=== PATIENT | male | born 1945 ===

== ENCOUNTER 2019-04-08 17:10 | Inpatient (IN) | payer MEDICARE ==
[2019-04-08] MEDS ORDERED: Insulin Regular, Human 100 Units/ML 3 ML Vial SUBCUT ONE (17:16)
--- NOTE | 2019-04-08 17:22 | EDM.PDOC ---
<Waqas Carrillo - Last Filed: 04/08/19 18:05> ED HPI GENERAL MEDICAL PROBLEM - General Chief Complaint: Neuro Symptoms/Deficits Stated Complaint: EVAL Time Seen by Provider: 04/08/19 17:17 Source of Information: Reports: EMS History Limitations: Reports: Other (dementia, no old records) - History of Present Illness INITIAL COMMENTS - FREE TEXT/NARRATIVE: 73 yo male was stopped for driving erratically by police who contacted EMS who transported him here. He is alert and pleasantly confused. Has an elevated glucose to the upper 400's per EMS. What information we can obtain confirms a hx of AODM, HTN, and BPH. He knows his name and , but is more sketchy on other details. Thinks he lives in [place]. Does say he has a trailer in [place] and this does check out. Is incontinent when EMS brings him into the ER. Its not clear if he has been taking his meds and if so when. Was able to access [employer] and also talked with a doctor combustion analyst for this patient' s doctor, Dr. Morales, and found out this confusion is not new. Seems pretty clear on some issues, but not on others. Onset: Unknown/Unsure Duration: Chronic Location: Reports: Generalized Quality: Reports: Other (no pain reported.) Severity: Moderate Improves with: Reports: None Worsens with: Reports: Other (? time) Context: Reports: Other (apparently has some baseline chronic confusion. 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 (see below) (none) - Related Data Allergies Allergy/AdvReac Type Severity Reaction Status Date / Time pioglitazone [From Actos] Allergy Other Verified 04/08/19 17:34 Home Meds: Home Meds Glimepiride 4 mg PO WITHBREAKFAST 04/08/19 [History] Lisinopril [Zestril] 10 mg PO DAILY 04/08/19 [History] Tamsulosin [Tamsulosin 24 Hr] 0.4 mg PO BEDTIME 04/08/19 [History] metFORMIN [Glucophage] 1,000 mg PO BIDMEALS 04/08/19 [History] ED ROS GENERAL - Review of Systems Review Of Systems: See Below (due to dementia) Constitutional: Reports: No Symptoms HEENT: Reports: No Symptoms Respiratory: Reports: Cough. Denies: Shortness of Breath, Sputum Cardiovascular: Reports: No Symptoms Endocrine: Reports: No Symptoms GI/Abdominal: Reports: No Symptoms : Reports: No Symptoms Musculoskeletal: Reports: No Symptoms Skin: Reports: No Symptoms Neurological: Reports: No Symptoms Psychiatric: Reports: No Symptoms - Physical Exam Exam: See Below Exam Limited By: No Limitations General Appearance: Alert, WD/WN, No Apparent Distress Eye Exam: Bilateral Eye: Normal Inspection, PERRL Ears: Normal External Exam, Normal Canal, Hearing Grossly Normal Nose: Normal Inspection, No Blood Throat/Mouth: Normal Inspection, Normal Lips, Normal Oropharynx, Normal Voice, No Airway Compromise Head Exam: Atraumatic, Normocephalic Neck: Normal Inspection Respiratory/Chest: No Respiratory Distress, Lungs Clear, Normal Breath Sounds, No Accessory Muscle Use, Other (dry cough) Cardiovascular: Regular Rate, Rhythm, No Edema GI/Abdominal: Normal Bowel Sounds, Soft, Non-Tender, No Distention Neuro Exam (Abbreviated): Alert, CN II-XII Intact, No Motor/Sensory Deficits, Confused (seems clear on some areas, is confused on other issues. ) Back Exam: Normal Inspection. No: CVA Tenderness (R), CVA Tenderness (L) Extremities: Normal Inspection, Normal Range of Motion, Non-Tender, No Pedal Edema Psychiatric: Normal Affect, Normal Mood Skin Exam: Warm, Dry, Intact, Normal Color, No Rash Course - Vital Signs Last Recorded V/S: Last Vital Signs Temp 101.3 F H 04/08/19 19:51 Pulse 103 H 04/08/19 20:20 Resp 18 04/08/19 19:48 BP 141/74 H 04/08/19 20:20 Pulse Ox 98 04/08/19 19:48 - Orders/Labs/Meds Orders: Active Orders 24 hr Category Date Time Status POC Glucose [Blood Glucose Check, Bedside] [RC] ONETIME Care 04/08/19 18:26 Active CULTURE URINE [RM] Stat Lab 04/08/19 18:17 Received Pantoprazole [ProTONIX IV] Med 04/08/19 18:30 Active 40 mg IVPUSH DAILY Sodium Chloride 0.9% [Normal Saline] 1,000 ml Med 04/08/19 18:30 Active IV ASDIRECTED cefTRIAXone [Rocephin] 1 gm Med 04/08/19 18:30 Active Sodium Chloride 0.9% [Normal Saline] 50 ml IV Q24H Medication Orders Acetaminophen (Tylenol) 650 mg PO Q4H PRN PRN Reason: Pain (Mild 1-3)/fever Last Admin: 04/08/19 19:51 Dose: 650 mg Albuterol (Proventil Neb Soln) 2.5 mg NEB Q4H PRN PRN Reason: Shortness Of Breath/wheezing Docusate Sodium (Colace) 100 mg PO BID PRN PRN Reason: Constipation Enoxaparin Sodium (Lovenox) 40 mg SUBCUT DAILY [facility] Last Admin: 04/08/19 20:19 Dose: 40 mg Glimepiride (Amaryl) 4 mg PO WITHBREAKFAST [facility] Ceftriaxone Sodium 1 gm/ (Sodium Chloride) 50 mls @ 100 mls/hr IV Q24H [facility] Last Admin: 04/08/19 19:35 Dose: 100 mls/hr Sodium Chloride (Normal Saline) 1,000 mls @ 150 mls/hr IV ASDIRECTED [facility] Last Admin: 04/08/19 19:52 Dose: 150 mls/hr Insulin Human Lispro (Humalog) 0 unit SUBCUT QIDACANDBED [facility]; Protocol Lisinopril (Prinivil) 10 mg PO DAILY [facility] Lorazepam (Ativan) 1 mg IV Q6H PRN PRN Reason: Nausea/Vomiting Melatonin (Melatonin) 9 mg PO BEDTIME [facility] Metoprolol Tartrate (Lopressor) 25 mg PO BID [facility] Last Admin: 04/08/19 20:20 Dose: 25 mg Morphine Sulfate (Morphine) 2 mg IVPUSH Q2H PRN PRN Reason: Pain (severe 7-10) Ondansetron HCl (Zofran Odt) 4 mg PO Q6H PRN PRN Reason: Nausea able to take PO Ondansetron HCl (Zofran) 4 mg IV Q4H PRN PRN Reason: Nausea/Vomiting Oxycodone HCl (Oxycodone) 5 mg PO Q4H PRN PRN Reason: Pain (moderate 4-6) Pantoprazole Sodium (Protonix Iv) 40 mg IVPUSH DAILY [facility] Last Admin: 04/08/19 19:33 Dose: 40 mg Tamsulosin HCl (Flomax) 0.4 mg PO BEDTIME [facility] Labs: Laboratory Tests 04/08/19 04/08/19 04/08/19 Range/Units 17:23 17:28 17:28 WBC 5.2 (4.5-11.0) K/uL RBC 3.61 L (4.30-5.90) M/uL Hgb 10.4 L (12.0-15.0) g/dL Hct 34.4 L (40.0-54.0) % MCV 95 (80-98) fL MCH 29 (27-31) pg MCHC 30 L (32-36) % Plt Count 158 (150-400) K/uL Sodium 134 L (140-148) mmol/L Potassium 4.4 (3.6-5.2) mmol/L Chloride 99 L (100-108) mmol/L Carbon Dioxide 23 (21-32) mmol/L Anion Gap 16.4 H (5.0-14.0) mmol/L BUN 33 H (7-18) mg/dL Creatinine 1.8 H (0.8-1.3) mg/dL Est Cr Clr Drug Dosing 34.68 mL/min Estimated GFR (MDRD) 37 L (>60) Glucose 386 H (74-106) mg/dL Calcium 8.7 (8.5-10.1) mg/dL Magnesium (1.8-2.4) mg/dL Total Bilirubin (0.2-1.0) mg/dL Direct Bilirubin (0.0-0.2) mg/dL Indirect Bilirubin AST (15-37) U/L ALT (12-78) U/L Alkaline Phosphatase (46-116) U/L Troponin I (0.000-0.056) ng/mL Total Protein (6.4-8.2) g/dL Albumin (3.4-5.0) g/dL Globulin (2.3-3.5) g/dL Albumin/Globulin Ratio (1.2-2.2) Amylase (25-115) U/L Lipase (73-393) U/L TSH, Ultra Sensitive (0.358-3.740) uIU/mL Urine Color Yellow (YELLOW) Urine Appearance Slightly cloudy A (CLEAR) Urine pH 6.0 (5.0-8.0) Ur Specific L[place] 1.015 (1.008-1.030) Urine Protein Trace H (NEGATIVE) mg/dL Urine Glucose (UA) 500 H (NEGATIVE) mg/dL Urine Ketones Negative (NEGATIVE) mg/dL Urine Occult Blood Trace-intact H (NEGATIVE) Urine Nitrite Positive H (NEGATIVE) Urine Bilirubin Negative (NEGATIVE) Urine Urobilinogen 0.2 (0.2-1.0) EU/dL Ur Leukocyte Esterase Negative (NEGATIVE) Urine RBC 10-20 H (0-5) Urine WBC 0-5 (0-5) Ur Epithelial Cells Not seen Amorphous Sediment Rare Urine Bacteria Many Urine Mucus Not seen 04/08/19 04/08/19 Range/Units 18:28 18:29 WBC (4.5-11.0) K/uL RBC (4.30-5.90) M/uL Hgb (12.0-15.0) g/dL Hct (40.0-54.0) % MCV (80-98) fL MCH (27-31) pg MCHC (32-36) % Plt Count (150-400) K/uL Sodium (140-148) mmol/L Potassium (3.6-5.2) mmol/L Chloride (100-108) mmol/L Carbon Dioxide (21-32) mmol/L Anion Gap (5.0-14.0) mmol/L BUN (7-18) mg/dL Creatinine (0.8-1.3) mg/dL Est Cr Clr Drug Dosing mL/min Estimated GFR (MDRD) (>60) Glucose (74-106) mg/dL Calcium (8.5-10.1) mg/dL Magnesium 2.0 (1.8-2.4) mg/dL Total Bilirubin 0.4 (0.2-1.0) mg/dL Direct Bilirubin 0.09 (0.0-0.2) mg/dL Indirect Bilirubin TNP AST 13 L (15-37) U/L ALT 21 (12-78) U/L Alkaline Phosphatase 92 (46-116) U/L Troponin I < 0.017 (0.000-0.056) ng/mL Total Protein 7.3 (6.4-8.2) g/dL Albumin 3.7 (3.4-5.0) g/dL Globulin 3.6 H (2.3-3.5) g/dL Albumin/Globulin Ratio 1.0 L (1.2-2.2) Amylase 42 (25-115) U/L Lipase 314 (73-393) U/L TSH, Ultra Sensitive 1.235 (0.358-3.740) uIU/mL Urine Color (YELLOW) Urine Appearance (CLEAR) Urine pH (5.0-8.0) Ur Specific [place] (1.008-1.030) Urine Protein (NEGATIVE) mg/dL Urine Glucose (UA) (NEGATIVE) mg/dL Urine Ketones (NEGATIVE) mg/dL Urine Occult Blood (NEGATIVE) Urine Nitrite (NEGATIVE) Urine Bilirubin (NEGATIVE) Urine Urobilinogen (0.2-1.0) EU/dL Ur Leukocyte Esterase (NEGATIVE) Urine RBC (0-5) Urine WBC (0-5) Ur Epithelial Cells Amorphous Sediment Urine Bacteria Urine Mucus Meds: Medications Generic Name Dose Route Start Last Admin Trade Name Freq PRN Reason Stop Dose Admin Acetaminophen 650 mg 04/08/19 19:46 04/08/19 19:51 Tylenol PO 650 mg Q4H PRN Administration Pain (Mild 1-3)/fever Albuterol 2.5 mg 04/08/19 19:46 Proventil Neb Soln NEB Q4H PRN Shortness Of Breath/wheezing Docusate Sodium 100 mg 04/08/19 19:46 Colace PO BID PRN Constipation Enoxaparin Sodium 40 mg 04/08/19 19:46 04/08/19 20:19 Lovenox SUBCUT 40 mg DAILY MIKAELA Administration Glimepiride 4 mg 04/09/19 08:00 Amaryl PO WITHBREAKFAST [facility] Ceftriaxone Sodium 1 gm/ 50 mls @ 100 mls/hr 04/08/19 18:30 04/08/19 19:35 Sodium Chloride IV 100 mls/hr Q24H MIKAELA Administration Sodium Chloride 1,000 mls @ 150 mls/hr 04/08/19 18:30 04/08/19 19:52 Normal Saline IV 150 mls/hr ASDIRECTED MIKAELA Administration Insulin Human Lispro 0 unit 04/08/19 20:00 Humalog SUBCUT QIDACANDBED [facility] Protocol Lisinopril 10 mg 04/09/19 09:00 Prinivil PO DAILY MIKAELA Lorazepam 1 mg 04/08/19 19:46 Ativan IV Q6H PRN Nausea/Vomiting Melatonin 9 mg 04/08/19 21:00 Melatonin PO BEDTIME MIKAELA Metoprolol Tartrate 25 mg 04/08/19 19:46 04/08/19 20:20 Lopressor PO 25 mg BID MIKAELA Administration Morphine Sulfate 2 mg 04/08/19 19:46 Morphine IVPUSH Q2H PRN Pain (severe 7-10) Ondansetron HCl 4 mg 04/08/19 19:46 Zofran Odt PO Q6H PRN Nausea able to take PO Ondansetron HCl 4 mg 04/08/19 19:46 Zofran IV Q4H PRN Nausea/Vomiting Oxycodone HCl 5 mg 04/08/19 19:46 Oxycodone PO Q4H PRN Pain (moderate 4-6) Pantoprazole Sodium 40 mg 04/08/19 18:30 04/08/19 19:33 Protonix Iv IVPUSH 40 mg DAILY MIKAELA Administration Tamsulosin HCl 0.4 mg 04/08/19 21:00 Flomax PO BEDTIME MIKAELA Discontinued Medications Generic Name Dose Route Start Last Admin Trade Name Freq PRN Reason Stop Dose Admin Insulin Human Regular 20 unit 04/08/19 17:16 04/08/19 17:28 Humulin R SUBCUT 04/08/19 17:17 20 units ONETIME ONE Administration Departure - Departure Disposition: Refer to Observation Condition: Fair Clinical Impression: Hyperglycemia, Confusion, High risk social situation - Discharge Information *PRESCRIPTION DRUG MONITORING PROGRAM REVIEWED*: No *COPY OF PRESCRIPTION DRUG MONITORING REPORT IN PATIENT ANGIE: No Sepsis Event Note - Focused Exam Vital Signs: Vital Signs Temp Pulse Resp BP Pulse Ox 04/08/19 18:04 98.7 F 140 H 18 138/62 98 04/08/19 17:22 98.7 F 140 H 18 138/62 98 Date Exam was Performed: 04/08/19 Time Exam was Performed: 18:05 - My Orders Last 24 Hours: My Active Orders 04/08/19 18:17 CULTURE URINE [RM] Stat - Assessment/Plan Last 24 Hours: My Active Orders 04/08/19 18:17 CULTURE URINE [RM] Stat <Mikhail Shaw - Last Filed: 04/08/19 20:51> Course - Re-Assessments/Exams Free Text/Narrative Re-Assessment/Exam: 04/08/19 18:57 Care turned over to myself from Dr. Carrillo pending disposition. Patient remained confused, urine showed nitrite positive urine with many bacteria so a culture was initiated. The hospitalist service was consulted for admission. Departure - Departure Time of Disposition: 19:41 Sepsis Event Note - Focused Exam Date Exam was Performed: 04/08/19 Time Exam was Performed: 20:51
[2019-04-08] MEDS ORDERED: Pantoprazole 40 MG Vial IVPUSH SCH (18:30)
[2019-04-08] MEDS: cefTRIAXone 1 GM in Sodium Chloride 0.9% 50 ML IV SCH (19:35)
--- NOTE | 2019-04-08 19:36 | CRLCT ---
INDICATION: acute confusion CT HEAD WITHOUT CONTRAST TECHNIQUE: Multiple axial CT images were performed through the head without intravenous contrast administration. COMPARISON: No previous studies are currently available for comparison. FINDINGS: The exam is mildly limited by motion. No acute intracranial hemorrhage is identified. No extra-axial collections are evident and there is no mass effect or midline shift. There is mild diffuse age-related brain atrophy. Ventricular size and configuration are within normal limits for the patient`s age. Leon-white differentiation is within normal limits. There is mild patchy hypodensity in the periventricular white matter, a nonspecific finding which most likely reflects chronic small vessel ischemic change. Osseous structures are within normal limits and no fractures are seen. Included portions of the paranasal sinuses and mastoid air cells are normally aerated. IMPRESSION: 1. No acute intracranial abnormality identified. 2. Mild age-related brain atrophy and white matter hypodensity consistent with chronic small vessel ischemic change. NISSA BAIG MD [employer] Dictated by Benjie Baig MD @ 04/08/2019 7:34:41 PM Dictated by: Benjie Baig MD @ 04/08/2019 19:35:03 (Electronically Signed)
[2019-04-08] MEDS ORDERED: Ondansetron 4 MG/2 ML SDV IV PRN (19:46)
[2019-04-08] MEDS ORDERED: LORazepam 2 MG/ML SDV IV PRN (19:46)
[2019-04-08] MEDS ORDERED: Morphine 2 MG/ML Syringe IVPUSH PRN (19:46)
[2019-04-08] MEDS ORDERED: oxyCODONE 5 MG Tab PO PRN (19:46)
[2019-04-08] MEDS ORDERED: Docusate Sodium 100 MG Cap PO PRN (19:46)
[2019-04-08] MEDS ORDERED: Albuterol 0.083% 2.5 MG/3 ML Neb Soln NEB PRN (19:46)
[2019-04-08] MEDS ORDERED: Enoxaparin 40 MG/0.4 ML Syringe SUBCUT SCH (19:46)
[2019-04-08] MEDS ORDERED: Ondansetron 4 MG Tab.DIS PO PRN (19:46)
[2019-04-08] MEDS: Acetaminophen 325 MG Tab PO PRN (19:51)
[2019-04-08] MEDS: Sodium Chloride 0.9% 1,000 ML IV SCH (19:52)
--- NOTE | 2019-04-08 19:52 | PCM.HP.2 ---
H&P History of Present Illness - General Date of Service: 04/08/19 Admit Problem/Dx: Admission Diagnosis/Problem Admission Diagnosis/Problem Urinary tract infection Source of Information: Patient, Police, Provider, RN History Limitations: Reports: Altered Mental Status - History of Present Illness Initial Comments - Free Text/Narative: 73 yo male was stopped for driving erratically by police who contacted EMS who transported him here. He is alert and pleasantly confused. Has an elevated glucose to the upper 400's per EMS. What information we can obtain confirms a hx of AODM, HTN, and BPH. He knows his name and , but is more sketchy on other details. Thinks he lives in [place]. Does say he has a trailer in [place] and this does check out. Is incontinent when EMS brings him into the ER. Its not clear if he has been taking his meds and if so when. Was able to access [facility] and also talked with a doctor cab station attendant for this patient' s doctor, Dr. Morales, and found out this confusion is not new. Seems pretty clear on some issues, but not on others. Onset: Unknown/Unsure Onset of Symptoms: Reports: Today, Unknown/Unsure Location: Reports: Generalized (confusion, weakness) Severity: Severe Improves with: Reports: None Worsens with: Reports: None Context: Reports: Other (dementia) Associated Symptoms: Reports: Confusion, Fever/Chills, Weakness, Other ( frequent urination) - Related Data Allergies/Adverse Reactions: Allergies Allergy/AdvReac Type Severity Reaction Status Date / Time pioglitazone [From Actos] Allergy Other Verified 04/08/19 17:34 Home Medications: Home Meds Glimepiride 4 mg PO WITHBREAKFAST 04/08/19 [History] Lisinopril [Zestril] 10 mg PO DAILY 04/08/19 [History] Tamsulosin [Tamsulosin 24 Hr] 0.4 mg PO BEDTIME 04/08/19 [History] metFORMIN [Glucophage] 1,000 mg PO BIDMEALS 04/08/19 [History] Past Medical History HEENT History: Reports: Impaired Vision Cardiovascular History: Reports: Hypertension Genitourinary History: Reports: BPH Neurological History: Reports: Other (See Below) Other Neuro History: confused Endocrine/Metabolic History: Reports: Diabetes, Type II - Infectious Disease History Infectious Disease History: Reports: Chicken Pox Social & Family History - Tobacco Use Smoking Status *Q: Former Smoker Used Tobacco, but Quit: Yes Month/Year Tobacco Last Used: long time ago - Caffeine Use Caffeine Use: Reports: Coffee, Soda, Tea - Recreational Drug Use Recreational Drug Use: No - Living Situation & Occupation Living situation: Reports: 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 Wants to be alone and like it that way.) Occupation: Retired H&P Review of Systems - Review of Systems: Review Of Systems: See Below General: Reports: Fever, Weakness, Other (confusion) HEENT: Reports: Glasses, Headaches (reports intermittent headache left side) Pulmonary: Reports: Other (report irregular heart rate, suppose to be on blood thinners but has not take for a long time.) Cardiovascular: Reports: Edema (lower leg), Other (A Fib) Gastrointestinal: Reports: No Symptoms Genitourinary: Reports: Dysuria, Frequency, Urgency Musculoskeletal: Reports: No Symptoms Skin: Reports: Erythema (lower legs) Psychiatric: Reports: Confusion Neurological: Reports: Confusion Hematologic/Lymphatic: Reports: No Symptoms Immunologic: Reports: No Symptoms Exam - Exam Exam: See Below - Vital Signs Vital Signs: Last Vital Signs Temp 38.5 C H 04/08/19 19:48 Pulse 103 H 04/08/19 19:48 Resp 18 04/08/19 19:48 BP 141/74 H 04/08/19 19:48 Pulse Ox 98 04/08/19 19:48 Weight: 99.79 kg - Exam General: Alert, Cooperative HEENT: PERRLA, Conjunctiva Clear, EACs Clear, EOMI, Hearing Intact, Mucosa Moist & [place], Nares Patent, Normal Nasal Septum, Glasses Neck: Supple, Trachea Midline Lungs: Clear to Auscultation, Normal Respiratory Effort, Decreased Breath Sounds Cardiovascular: Irregular Rhythm GI/Abdominal Exam: Normal Bowel Sounds, Soft, Non-Tender, Other (urinary incontinence) (Male) Exam: Deferred Rectal (Males) Exam: Deferred Back Exam: Normal Inspection, Full Range of Motion Extremities: Redness (lower legs ), Other (bilateral lower leg edema. ) Peripheral Pulses: 2+: Brachial (L), Brachial (R) Skin: Warm, Other (lower legs with chronic discoloration.) Neurological: Strength Equal Bilateral (very weak testing and regulating chief and grasp.), Normal Gait , Normal Speech Neuro Extensive - Mental Status: Alert, Disorientation to Place, Disorientation to Time, Inattentive, Memory Loss-Remote Events, Memory Loss-Recent Events, Other (Cristian is able to state his name, date of , knows its cold outside, the year 2019. 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 ) Neuro Extensive - Motor, Sensory, Reflexes: Motor/Sensory Deficits Psychiatric: Alert, Other (pleasantly confused) - Patient Data Lab Results Last 24 hrs: Laboratory Results - last 24 hr 04/08/19 04/08/19 04/08/19 Range/Units 17:23 17:28 17:28 WBC 5.2 (4.5-11.0) K/uL RBC 3.61 L (4.30-5.90) M/uL Hgb 10.4 L (12.0-15.0) g/dL Hct 34.4 L (40.0-54.0) % MCV 95 (80-98) fL MCH 29 (27-31) pg MCHC 30 L (32-36) % Plt Count 158 (150-400) K/uL Sodium 134 L (140-148) mmol/L Potassium 4.4 (3.6-5.2) mmol/L Chloride 99 L (100-108) mmol/L Carbon Dioxide 23 (21-32) mmol/L Anion Gap 16.4 H (5.0-14.0) mmol/L BUN 33 H (7-18) mg/dL Creatinine 1.8 H (0.8-1.3) mg/dL Est Cr Clr Drug Dosing 34.68 mL/min Estimated GFR (MDRD) 37 L (>60) Glucose 386 H (74-106) mg/dL Calcium 8.7 (8.5-10.1) mg/dL Magnesium (1.8-2.4) mg/dL Total Bilirubin (0.2-1.0) mg/dL Direct Bilirubin (0.0-0.2) mg/dL Indirect Bilirubin AST (15-37) U/L ALT (12-78) U/L Alkaline Phosphatase (46-116) U/L Troponin I (0.000-0.056) ng/mL Total Protein (6.4-8.2) g/dL Albumin (3.4-5.0) g/dL Globulin (2.3-3.5) g/dL Albumin/Globulin Ratio (1.2-2.2) Amylase (25-115) U/L Lipase (73-393) U/L TSH, Ultra Sensitive (0.358-3.740) uIU/mL Urine Color Yellow (YELLOW) Urine Appearance Slightly cloudy A (CLEAR) Urine pH 6.0 (5.0-8.0) Ur Specific [place] 1.015 (1.008-1.030) Urine Protein Trace H (NEGATIVE) mg/dL Urine Glucose (UA) 500 H (NEGATIVE) mg/dL Urine Ketones Negative (NEGATIVE) mg/dL Urine Occult Blood Trace-intact H (NEGATIVE) Urine Nitrite Positive H (NEGATIVE) Urine Bilirubin Negative (NEGATIVE) Urine Urobilinogen 0.2 (0.2-1.0) EU/dL Ur Leukocyte Esterase Negative (NEGATIVE) Urine RBC 10-20 H (0-5) Urine WBC 0-5 (0-5) Ur Epithelial Cells Not seen Amorphous Sediment Rare Urine Bacteria Many Urine Mucus Not seen 04/08/19 04/08/19 Range/Units 18:28 18:29 WBC (4.5-11.0) K/uL RBC (4.30-5.90) M/uL Hgb (12.0-15.0) g/dL Hct (40.0-54.0) % MCV (80-98) fL MCH (27-31) pg MCHC (32-36) % Plt Count (150-400) K/uL Sodium (140-148) mmol/L Potassium (3.6-5.2) mmol/L Chloride (100-108) mmol/L Carbon Dioxide (21-32) mmol/L Anion Gap (5.0-14.0) mmol/L BUN (7-18) mg/dL Creatinine (0.8-1.3) mg/dL Est Cr Clr Drug Dosing mL/min Estimated GFR (MDRD) (>60) Glucose (74-106) mg/dL Calcium (8.5-10.1) mg/dL Magnesium 2.0 (1.8-2.4) mg/dL Total Bilirubin 0.4 (0.2-1.0) mg/dL Direct Bilirubin 0.09 (0.0-0.2) mg/dL Indirect Bilirubin TNP AST 13 L (15-37) U/L ALT 21 (12-78) U/L Alkaline Phosphatase 92 (46-116) U/L Troponin I < 0.017 (0.000-0.056) ng/mL Total Protein 7.3 (6.4-8.2) g/dL Albumin 3.7 (3.4-5.0) g/dL Globulin 3.6 H (2.3-3.5) g/dL Albumin/Globulin Ratio 1.0 L (1.2-2.2) Amylase 42 (25-115) U/L Lipase 314 (73-393) U/L TSH, Ultra Sensitive 1.235 (0.358-3.740) uIU/mL Urine Color (YELLOW) Urine Appearance (CLEAR) Urine pH (5.0-8.0) Ur Specific [place] (1.008-1.030) Urine Protein (NEGATIVE) mg/dL Urine Glucose (UA) (NEGATIVE) mg/dL Urine Ketones (NEGATIVE) mg/dL Urine Occult Blood (NEGATIVE) Urine Nitrite (NEGATIVE) Urine Bilirubin (NEGATIVE) Urine Urobilinogen (0.2-1.0) EU/dL Ur Leukocyte Esterase (NEGATIVE) Urine RBC (0-5) Urine WBC (0-5) Ur Epithelial Cells Amorphous Sediment Urine Bacteria Urine Mucus Result Diagrams: 04/08/19 17:28 04/08/19 17:28 Sepsis Event Note - Evaluation Sepsis Screening Result: No Definite Risk - Focused Exam Vital Signs: Vital Signs Temp Pulse Resp BP Pulse Ox 04/08/19 19:48 38.5 C H 103 H 18 141/74 H 98 04/08/19 18:04 37.1 C 140 H 18 138/62 98 04/08/19 17:22 37.1 C 140 H 18 138/62 98 Date Exam was Performed: 04/08/19 Time Exam was Performed: 21:34 - Problem List (1) Confusion SNOMED Code(s): 853634568 ICD Code: R41.0 - DISORIENTATION, UNSPECIFIED Status: Acute Priority: High Current Visit: Yes (2) Urinary tract infection SNOMED Code(s): 71847452 ICD Code: N39.0 - URINARY TRACT INFECTION, SITE NOT SPECIFIED Status: Acute Priority: High Current Visit: Yes Qualifiers: Urinary tract infection type: acute cystitis Hematuria presence: with hematuria Qualified Code(s): N30.01 - Acute cystitis with hematuria (3) Diabetes type 2, uncontrolled SNOMED Code(s): 103643123, 982987059 ICD Code: E11.65 - TYPE 2 DIABETES MELLITUS WITH HYPERGLYCEMIA Status: Acute Priority: High Current Visit: Yes Qualifiers: Glycemic state: with hyperglycemia Qualified Code(s): E11.65 - Type 2 diabetes mellitus with hyperglycemia (4) High risk social situation SNOMED Code(s): 694760154, 922098807 ICD Code: Z60.9 - PROBLEM RELATED TO SOCIAL ENVIRONMENT, UNSPECIFIED Status : Acute Priority: High Current Visit: Yes (5) A-fib SNOMED Code(s): 63366225 ICD Code: I48.91 - UNSPECIFIED ATRIAL FIBRILLATION Status: Acute Priority : Low Current Visit: Yes Qualifiers: Atrial fibrillation type: unspecified Qualified Code(s): I48.91 - Unspecified atrial fibrillation Problem List Initiated/Reviewed/Updated: Yes Orders Last 24hrs: Active Orders 24 hr Category Date Time Status Cardiac Monitoring [RC] CONTINUOUS Care 04/08/19 19:46 Active Diabetes Education [RC] Click to Edit Care 04/08/19 19:46 Active Intake and Output [RC] QSHIFT Care 04/08/19 19:46 Active Notify Provider Vital Signs [RC] ASDIRECTED Care 04/08/19 19:46 Active Notify Provider [RC] PRN Care 04/08/19 19:46 Active Oxygen Therapy [RC] PRN Care 04/08/19 19:46 Active POC Glucose [Blood Glucose Check, Bedside] [RC] ONETIME Care 04/08/19 18:26 Active Pulse Oximetry [RC] PRN Care 04/08/19 19:46 Active RT Aerosol Therapy [RC] ASDIRECTED Care 04/08/19 19:46 Active Up With Assistance [RC] ASDIRECTED Care 04/08/19 19:46 Active VTE/DVT Education [RC] Per Unit Routine Care 04/08/19 19:46 Active Vital Signs [RC] Q4H Care 04/08/19 19:46 Active Consult to Case Management/Animal Anatomist [CONS] Cons 04/08/19 19:46 Active Routine Consistent Carbohydrate Diet [DIET] Diet 04/08/19 Dinner Active BASIC METABOLIC PANEL,BMP [CHEM] AM Lab 04/09/19 05:11 Ordered CBC WITH AUTO DIFF [HEME] AM Lab 04/09/19 05:11 Ordered CULTURE URINE [RM] Stat Lab 04/08/19 18:17 Received GLUCOSE POC LAB TO COLLECT [POC] QIDACANDBED Lab 04/08/19 21:00 Ordered GLYCOSYLATED HEMOGLOBIN,HGBA1C [CHEM] Routine Lab 04/08/19 19:46 Ordered INR,PT,PROTHROMBIN TIME [COAG] Urgent Lab 04/08/19 19:46 Ordered Acetaminophen [Tylenol] Med 04/08/19 19:46 Active 650 mg PO Q4H PRN Albuterol [Proventil Neb Soln] Med 04/08/19 19:46 Active 2.5 mg NEB Q4H PRN Docusate Sodium [Colace] Med 04/08/19 19:46 Active 100 mg PO BID PRN Enoxaparin [Lovenox] Med 04/08/19 19:46 Active 40 mg SUBCUT DAILY Glimepiride [Amaryl] Med 04/09/19 08:00 Active 4 mg PO WITHBREAKFAST Insulin Lispro [HumaLOG] Med 04/08/19 20:00 Active See Protocol SUBCUT QIDACANDBED LORazepam [Ativan] Med 04/08/19 19:46 Active 1 mg IV Q6H PRN Melatonin Med 04/08/19 21:00 Active 9 mg PO BEDTIME Metoprolol Tartrate [Lopressor] Med 04/08/19 19:46 Active 25 mg PO BID Morphine Med 04/08/19 19:46 Active 2 mg IVPUSH Q2H PRN Ondansetron [Zofran ODT] Med 04/08/19 19:46 Active 4 mg PO Q6H PRN Ondansetron [Zofran] Med 04/08/19 19:46 Active 4 mg IV Q4H PRN Pantoprazole [ProTONIX IV] Med 04/08/19 18:30 Active 40 mg IVPUSH DAILY Sodium Chloride 0.9% [Normal Saline] 1,000 ml Med 04/08/19 18:30 Active IV ASDIRECTED Tamsulosin [Flomax] Med 04/08/19 21:00 Active 0.4 mg PO BEDTIME cefTRIAXone [Rocephin] 1 gm Med 01/09/20 18:30 Active Sodium Chloride 0.9% [Normal Saline] 50 ml IV Q24H lisinopriL [Prinivil] Med 04/09/19 09:00 Active 10 mg PO DAILY oxyCODONE Med 04/08/19 19:46 Active 5 mg PO Q4H PRN Resuscitation Status Routine Resus Stat 04/08/19 18:51 Ordered Medication Orders Acetaminophen (Tylenol) 650 mg PO Q4H PRN PRN Reason: Pain (Mild 1-3)/fever Albuterol (Proventil Neb Soln) 2.5 mg NEB Q4H PRN PRN Reason: Shortness Of Breath/wheezing Docusate Sodium (Colace) 100 mg PO BID PRN PRN Reason: Constipation Enoxaparin Sodium (Lovenox) 40 mg SUBCUT DAILY [facility] Glimepiride (Amaryl) 4 mg PO WITHBREAKFAST [facility] Ceftriaxone Sodium 1 gm/ (Sodium Chloride) 50 mls @ 100 mls/hr IV Q24H [facility] Last Admin: 04/08/19 19:35 Dose: 100 mls/hr Sodium Chloride (Normal Saline) 1,000 mls @ 150 mls/hr IV ASDIRECTED [facility] Insulin Human Lispro (Humalog) 0 unit SUBCUT QIDACANDBED [facility]; Protocol Lisinopril (Prinivil) 10 mg PO DAILY [facility] Lorazepam (Ativan) 1 mg IV Q6H PRN PRN Reason: Nausea/Vomiting Melatonin (Melatonin) 9 mg PO BEDTIME [facility] Metoprolol Tartrate (Lopressor) 25 mg PO BID [facility] Morphine Sulfate (Morphine) 2 mg IVPUSH Q2H PRN PRN Reason: Pain (severe 7-10) Ondansetron HCl (Zofran Odt) 4 mg PO Q6H PRN PRN Reason: Nausea able to take PO Ondansetron HCl (Zofran) 4 mg IV Q4H PRN PRN Reason: Nausea/Vomiting Oxycodone HCl (Oxycodone) 5 mg PO Q4H PRN PRN Reason: Pain (moderate 4-6) Pantoprazole Sodium (Protonix Iv) 40 mg IVPUSH DAILY [facility] Last Admin: 04/08/19 19:33 Dose: 40 mg Tamsulosin HCl (Flomax) 0.4 mg PO BEDTIME [facility] Assessment/Plan Comment:: ASSESSMENT AND PLAN: 73 yo male was stopped for driving erratically by police who contacted EMS who transported him here. He is alert and pleasantly confused. Has an elevated glucose to the upper 400's per EMS. What information we can obtain confirms a hx of AODM, HTN, and BPH. He knows his name and , but is more sketchy on other details. Thinks he lives in [place]. Does say he has a trailer in [place] and this does check out. Is incontinent when EMS brings him into the ER. Its not clear if he has been taking his meds and if so when. Was able to access [facility] and also talked with a doctor cab station attendant for this patient' s doctor, Dr. Morales, and found out this confusion is not new. Seems pretty clear on some issues, but not on others. Onset: Unknown/Unsure plan: admit for further care and evaluation Confusion- Head CT negative for acute process, concerns of dementia. will acquire records from Primary Care clinic for review. -monitor closely Urinary Tract Infection -IV Rocephin 1 gram every 24 hours -IV Fluids Normal Saline 150ml/hr -urine culture pending -am labs CBC, BMP Diabetes Type 2 - reports has pills to take but didn't get them, prescription filled this week but the pills froze and has not taken them because was concerned they would not work. Has not take diabetes medication for weeks - long time. -blood glucose check before meals and at bedtime -Insulin Novolog low dose sliding scale coverage -consistent carb diet A Fib, reports has irregular heart beat but has not taken blood thinner medication for a long time. has a white pill (Metoprolol) but does not take every day. -telemetry -continue Metoprolol 25mg po bid High risk social situation -referral to Animal Anatomist MAINTENANCE ISSUES -DVT prophylaxis; Lovenox 40 mg subcut daily -GI prophylaxis; PPI therapy -Lloyd catheter; not indicated -Nutrition; consistent carb diet -Nicotine dependence; not required CODE STATUS-FULL CODE ADMISSION STATUS-patient will be admitted to inpatient status, expect at least a 2 night hospital stay for evaluation and management of problems as outlined above. At the time of this admission I do not reasonably expected evaluation and management of this problem will require more than a 96 hour hospital stay. DISPOSITION-anticipate discharge to home after the hospital stay. PRIMARY CARE PROVIDER- Dr. Scott, [facility] HOSPITALIST - Dr. Antunez - Mortality Measure Prognosis:: Good - Mortality Measure Prognosis:: Good
[2019-04-08 20:00] LABS: HEMOGLOBIN A1C 9.7 % (4.5-6.2)
[2019-04-08] MEDS: Metoprolol Tartrate 25 MG Tab PO SCH (20:20)
[2019-04-08] MEDS: Insulin Lispro 100 Unit/ML 3 ML KwikPen SUBCUT SCH (21:33)
[2019-04-08] MEDS: Tamsulosin 0.4 MG Cap.ER PO SCH (21:35)
[2019-04-08] MEDS: Melatonin 3 MG Tab PO SCH (21:36)
[2019-04-09] MEDS ORDERED: Metoprolol Tartrate 25 MG Tab PO ONE (00:40)
--- NOTE | 2019-04-09 01:12 | PCM.SN ---
- Free Text/Narrative Note: time 0100 call from [address] [place] [address] Nursing - concerns of tachycardia. patient is noted to be sleeping when awaken heart rate return to 90's, then increases to 140 and 150 while asleep. blood pressure 128/74 oxygen sat 99%, no distress noted a: tachy p: order blood glucose - results 97 - feed patient order extra dose of Metoprolol 25 mg po continue with present plan of care
[2019-04-09] MEDS: Sodium Chloride 0.9% 1,000 ML IV SCH ×2 (02:39→10:21)
[2019-04-09] MEDS: Acetaminophen 325 MG Tab PO PRN ×2 (08:13→21:15)
[2019-04-09] MEDS: Pantoprazole 40 MG Tab.CR PO SCH (09:06)
[2019-04-09] MEDS: Lisinopril 10 MG Tab PO SCH (09:06)
[2019-04-09] MEDS: Glimepiride 2 MG Tab PO SCH (09:06)
[2019-04-09] MEDS: Metoprolol Tartrate 25 MG Tab PO SCH ×2 (09:07→21:07)
[2019-04-09] MEDS ORDERED: Haloperidol 1 MG Tab PO STA (09:55)
[2019-04-09] MEDS: Insulin Lispro 100 Unit/ML 3 ML KwikPen SUBCUT SCH ×4 (10:10→21:05)
[2019-04-09] MEDS ORDERED: Non-Formulary Medication 1 Each (Metformin [Glucophage] 1,000 MG) PO SCH (11:45)
--- NOTE | 2019-04-09 11:54 | PCM.PN ---
- General Info Date of Service: 04/09/19 Subjective Update: Mr. Armendariz is a 73-year-old gentleman who was admitted through the emergency department with confusion secondary to uncontrolled diabetes with significant hyperglycemia and underlying urinary tract infection. He has been relatively stable since admission with improvement in glucose levels. This morning he is alert and oriented x2. Reports the confusion seem to be mainly secondary to having not taken his medications for some time. - Review of Systems General: Reports: Weakness. Denies: Fever, Chills Pulmonary: Reports: No Symptoms Cardiovascular: Reports: No Symptoms Gastrointestinal: Reports: No Symptoms - Patient Data Vitals - Most Recent: Last Vital Signs Temp 99.2 F 04/09/19 10:50 Pulse 84 04/09/19 10:50 Resp 16 04/09/19 10:50 BP 110/46 L 04/09/19 10:50 Pulse Ox 96 04/09/19 10:50 Weight - Most Recent: 220 lb I&O - Last 24 Hours: Intake & Output 04/08/19 04/09/19 04/09/19 22:59 06:59 14:59 Intake Total 2247 Output Total 525 Balance 1722 Lab Results Last 24 Hours: Laboratory Results - last 24 hr 04/08/19 04/08/19 04/08/19 Range/Units 17:23 17:28 17:28 WBC 5.2 (4.5-11.0) K/uL RBC 3.61 L (4.30-5.90) M/uL Hgb 10.4 L (12.0-15.0) g/dL Hct 34.4 L (40.0-54.0) % MCV 95 (80-98) fL MCH 29 (27-31) pg MCHC 30 L (32-36) % Plt Count 158 (150-400) K/uL Neut % (Auto) (36-66) % Lymph % (Auto) (24-44) % Barber % (Auto) (2-6) % Eos % (Auto) (2-4) % Baso % (Auto) (0-1) % PT (9.5-12.0) sec INR (0.80-1.20) Sodium 134 L (140-148) mmol/L Potassium 4.4 (3.6-5.2) mmol/L Chloride 99 L (100-108) mmol/L Carbon Dioxide 23 (21-32) mmol/L Anion Gap 16.4 H (5.0-14.0) mmol/L BUN 33 H (7-18) mg/dL Creatinine 1.8 H (0.8-1.3) mg/dL Est Cr Clr Drug Dosing 34.68 mL/min Estimated GFR (MDRD) 37 L (>60) Glucose 386 H (74-106) mg/dL Hemoglobin A1c (4.5-6.2) % Calcium 8.7 (8.5-10.1) mg/dL Magnesium (1.8-2.4) mg/dL Total Bilirubin (0.2-1.0) mg/dL Direct Bilirubin (0.0-0.2) mg/dL Indirect Bilirubin AST (15-37) U/L ALT (12-78) U/L Alkaline Phosphatase (46-116) U/L Troponin I (0.000-0.056) ng/mL Total Protein (6.4-8.2) g/dL Albumin (3.4-5.0) g/dL Globulin (2.3-3.5) g/dL Albumin/Globulin Ratio (1.2-2.2) Amylase (25-115) U/L Lipase (73-393) U/L TSH, Ultra Sensitive (0.358-3.740) uIU/mL Urine Color Yellow (YELLOW) Urine Appearance Slightly cloudy A (CLEAR) Urine pH 6.0 (5.0-8.0) Ur Specific [place] 1.015 (1.008-1.030) Urine Protein Trace H (NEGATIVE) mg/dL Urine Glucose (UA) 500 H (NEGATIVE) mg/dL Urine Ketones Negative (NEGATIVE) mg/dL Urine Occult Blood Trace-intact H (NEGATIVE) Urine Nitrite Positive H (NEGATIVE) Urine Bilirubin Negative (NEGATIVE) Urine Urobilinogen 0.2 (0.2-1.0) EU/dL Ur Leukocyte Esterase Negative (NEGATIVE) Urine RBC 10-20 H (0-5) Urine WBC 0-5 (0-5) Ur Epithelial Cells Not seen Amorphous Sediment Rare Urine Bacteria Many Urine Mucus Not seen 04/08/19 04/08/19 04/08/19 Range/Units 18:28 18:29 19:46 WBC (4.5-11.0) K/uL RBC (4.30-5.90) M/uL Hgb (12.0-15.0) g/dL Hct (40.0-54.0) % MCV (80-98) fL MCH (27-31) pg MCHC (32-36) % Plt Count (150-400) K/uL Neut % (Auto) (36-66) % Lymph % (Auto) (24-44) % Barber % (Auto) (2-6) % Eos % (Auto) (2-4) % Baso % (Auto) (0-1) % PT (9.5-12.0) sec INR (0.80-1.20) Sodium (140-148) mmol/L Potassium (3.6-5.2) mmol/L Chloride (100-108) mmol/L Carbon Dioxide (21-32) mmol/L Anion Gap (5.0-14.0) mmol/L BUN (7-18) mg/dL Creatinine (0.8-1.3) mg/dL Est Cr Clr Drug Dosing mL/min Estimated GFR (MDRD) (>60) Glucose (74-106) mg/dL Hemoglobin A1c 9.7 H (4.5-6.2) % Calcium (8.5-10.1) mg/dL Magnesium 2.0 (1.8-2.4) mg/dL Total Bilirubin 0.4 (0.2-1.0) mg/dL Direct Bilirubin 0.09 (0.0-0.2) mg/dL Indirect Bilirubin TNP AST 13 L (15-37) U/L ALT 21 (12-78) U/L Alkaline Phosphatase 92 (46-116) U/L Troponin I < 0.017 (0.000-0.056) ng/mL Total Protein 7.3 (6.4-8.2) g/dL Albumin 3.7 (3.4-5.0) g/dL Globulin 3.6 H (2.3-3.5) g/dL Albumin/Globulin Ratio 1.0 L (1.2-2.2) Amylase 42 (25-115) U/L Lipase 314 (73-393) U/L TSH, Ultra Sensitive 1.235 (0.358-3.740) uIU/mL Urine Color (YELLOW) Urine Appearance (CLEAR) Urine pH (5.0-8.0) Ur Specific [place] (1.008-1.030) Urine Protein (NEGATIVE) mg/dL Urine Glucose (UA) (NEGATIVE) mg/dL Urine Ketones (NEGATIVE) mg/dL Urine Occult Blood (NEGATIVE) Urine Nitrite (NEGATIVE) Urine Bilirubin (NEGATIVE) Urine Urobilinogen (0.2-1.0) EU/dL Ur Leukocyte Esterase (NEGATIVE) Urine RBC (0-5) Urine WBC (0-5) Ur Epithelial Cells Amorphous Sediment Urine Bacteria Urine Mucus 04/08/19 04/09/19 04/09/19 Range/Units 19:46 04:10 04:10 WBC 4.0 L (4.5-11.0) K/uL RBC 3.11 L (4.30-5.90) M/uL Hgb 8.9 L (12.0-15.0) g/dL Hct 29.8 L (40.0-54.0) % MCV 96 (80-98) fL MCH 29 (27-31) pg MCHC 30 L (32-36) % Plt Count 128 L (150-400) K/uL Neut % (Auto) 69 H (36-66) % Lymph % (Auto) 19 L (24-44) % Barber % (Auto) 11 H (2-6) % Eos % (Auto) 1 L (2-4) % Baso % (Auto) 0 (0-1) % PT 10.4 (9.5-12.0) sec INR 0.96 (0.80-1.20) Sodium 137 L (140-148) mmol/L Potassium 4.5 (3.6-5.2) mmol/L Chloride 104 (100-108) mmol/L Carbon Dioxide 24 (21-32) mmol/L Anion Gap 13.5 (5.0-14.0) mmol/L BUN 32 H (7-18) mg/dL Creatinine 1.7 H (0.8-1.3) mg/dL Est Cr Clr Drug Dosing 36.72 mL/min Estimated GFR (MDRD) 40 L (>60) Glucose 207 H (74-106) mg/dL Hemoglobin A1c (4.5-6.2) % Calcium 8.2 L (8.5-10.1) mg/dL Magnesium (1.8-2.4) mg/dL Total Bilirubin (0.2-1.0) mg/dL Direct Bilirubin (0.0-0.2) mg/dL Indirect Bilirubin AST (15-37) U/L ALT (12-78) U/L Alkaline Phosphatase (46-116) U/L Troponin I (0.000-0.056) ng/mL Total Protein (6.4-8.2) g/dL Albumin (3.4-5.0) g/dL Globulin (2.3-3.5) g/dL Albumin/Globulin Ratio (1.2-2.2) Amylase (25-115) U/L Lipase (73-393) U/L TSH, Ultra Sensitive (0.358-3.740) uIU/mL Urine Color (YELLOW) Urine Appearance (CLEAR) Urine pH (5.0-8.0) Ur Specific [place] (1.008-1.030) Urine Protein (NEGATIVE) mg/dL Urine Glucose (UA) (NEGATIVE) mg/dL Urine Ketones (NEGATIVE) mg/dL Urine Occult Blood (NEGATIVE) Urine Nitrite (NEGATIVE) Urine Bilirubin (NEGATIVE) Urine Urobilinogen (0.2-1.0) EU/dL Ur Leukocyte Esterase (NEGATIVE) Urine RBC (0-5) Urine WBC (0-5) Ur Epithelial Cells Amorphous Sediment Urine Bacteria Urine Mucus Med Orders - Current: Current Medications Acetaminophen (Tylenol) 650 mg PO Q4H PRN PRN Reason: Pain (Mild 1-3)/fever Last Admin: 04/09/19 08:13 Dose: 650 mg Albuterol (Proventil Neb Soln) 2.5 mg NEB Q4H PRN PRN Reason: Shortness Of Breath/wheezing Docusate Sodium (Colace) 100 mg PO BID PRN PRN Reason: Constipation Last Admin: 04/08/19 21:36 Dose: 100 mg Enoxaparin Sodium (Lovenox) 40 mg SUBCUT BEDTIME MIKAELA Glimepiride (Amaryl) 4 mg PO WITHBREAKFAST [facility] Last Admin: 04/09/19 09:06 Dose: 4 mg Ceftriaxone Sodium 1 gm/ (Sodium Chloride) 50 mls @ 100 mls/hr IV Q24H MIKAELA Last Admin: 04/08/19 19:35 Dose: 100 mls/hr Insulin Human Lispro (Humalog) 0 unit SUBCUT QIDACANDBED [facility]; Protocol Last Admin: 04/09/19 10:10 Dose: 1 unit Lisinopril (Prinivil) 10 mg PO DAILY [facility] Last Admin: 04/09/19 09:06 Dose: 10 mg Melatonin (Melatonin) 9 mg PO BEDTIME [facility] Last Admin: 04/08/19 21:36 Dose: 9 mg [facility] Metoprolol Tartrate (Lopressor) 25 mg PO BID [facility] Last Admin: 04/09/19 09:07 Dose: 25 mg Morphine Sulfate (Morphine) 2 mg IVPUSH Q2H PRN PRN Reason: Pain (severe 7-10) Ondansetron HCl (Zofran Odt) 4 mg PO Q6H PRN PRN Reason: Nausea able to take PO Ondansetron HCl (Zofran) 4 mg IV Q4H PRN PRN Reason: Nausea/Vomiting Oxycodone HCl (Oxycodone) 5 mg PO Q4H PRN PRN Reason: Pain (moderate 4-6) Pantoprazole Sodium (Protonix) 40 mg PO ACBREAKFAST [facility] Last Admin: 04/09/19 09:06 Dose: 40 mg Tamsulosin HCl (Flomax) 0.4 mg PO BEDTIME [facility] Last Admin: 04/08/19 21:35 Dose: 0.4 mg Discontinued Medications Enoxaparin Sodium (Lovenox) 40 mg SUBCUT DAILY [facility] Last Admin: 04/08/19 20:19 Dose: 40 mg Haloperidol (Haldol) 1 mg PO ONETIME STA Stop: 04/09/19 09:56 Last Admin: 04/09/19 10:57 Dose: Not Given Sodium Chloride (Normal Saline) 1,000 mls @ 125 mls/hr IV ASDIRECTED [facility] Last Admin: 04/09/19 10:21 Dose: 125 mls/hr Insulin Human Regular (Humulin R) 20 unit SUBCUT ONETIME ONE Stop: 04/08/19 17:17 Last Admin: 04/08/19 17:28 Dose: 20 units Lorazepam (Ativan) 1 mg IV Q6H PRN PRN Reason: Nausea/Vomiting Metoprolol Tartrate (Lopressor) 25 mg PO ONETIME ONE Stop: 04/09/19 00:41 Last Admin: 04/09/19 01:02 Dose: 25 mg Pantoprazole Sodium (Protonix Iv) 40 mg IVPUSH DAILY [facility]KAELA Last Admin: 04/08/19 19:33 Dose: 40 mg - Exam Quality Assessment: DVT Prophylaxis General: Alert, Cooperative, No Acute Distress Lungs: Clear to Auscultation, Normal Respiratory Effort Cardiovascular: Regular Rate, Regular Rhythm, No Murmurs GI/Abdominal Exam: Soft, Non-Tender, No Organomegaly, No Distention Extremities: Non-Tender, No Pedal Edema Sepsis Event Note - Evaluation Sepsis Screening Result: Sepsis Risk - Focused Exam Vital Signs: Vital Signs Temp Temp Pulse Pulse Resp BP BP 04/09/19 10:50 99.2 F 84 16 04/09/19 09:55 100.5 F 04/09/19 09:07 100 133/50 L 04/09/19 09:06 133/50 L 04/09/19 08:43 101.5 F H 04/09/19 08:13 102.3 F H 04/09/19 08:00 102.3 F H 04/09/19 07:48 04/09/19 07:46 101.7 F H 100 16 04/09/19 04:00 100.3 F 68 18 119/38 L 04/09/19 01:39 04/09/19 01:02 102 H 128/74 04/09/19 00:46 96 04/09/19 00:43 150 H 20 04/09/19 00:25 140 H 28 H 126/42 L BP Pulse Ox 04/09/19 10:50 110/46 L 96 04/09/19 09:55 04/09/19 09:07 04/09/19 09:06 04/09/19 08:43 04/09/19 08:13 04/09/19 08:00 04/09/19 07:48 96 04/09/19 07:46 133/50 L 93 L 04/09/19 04:00 94 L 04/09/19 01:39 94 L 04/09/19 01:02 04/09/19 00:46 99 04/09/19 00:43 97 04/09/19 00:25 95 Date Exam was Performed: 04/09/19 Time Exam was Performed: 11:50 - Problem List Review Problem List Initiated/Reviewed/Updated: Yes - My Orders Last 24 Hours: My Active Orders 04/09/19 07:30 POC Glucose [Blood Glucose Check, Bedside] [RC] QIDACANDBED 04/09/19 10:38 Consult to Physical Therapy [PT Evaluation and Treatment] [CONS] Routine 04/09/19 11:45 metFORMIN [Glucophage] 1,000 mg PO BIDMEALS 04/09/19 11:48 Convert IV to Saline Lock [OM.PC] Routine 04/09/19 16:30 GLUCOSE POC LAB TO COLLECT [POC] QIDACANDBED 04/09/19 21:00 GLUCOSE POC LAB TO COLLECT [POC] QIDACANDBED 04/10/19 05:00 BASIC METABOLIC PANEL,BMP [CHEM] Timed - Plan Plan:: ASSESSMENT AND PLAN Confusion- Head CT negative for acute process, concerns of dementia. will acquire records from Primary Care clinic for review. More appropriate this morning alert and oriented x2 -Cognitive assessment by occupational therapy -monitor closely Urinary Tract Infection -IV Rocephin 1 gram every 24 hours -IV Fluids Normal Saline 150ml/hr -urine culture pending Diabetes Type 2 - reports has pills to take but didn't get them, prescription filled this week but the pills froze and has not taken them because was concerned they would not work. Has not take diabetes medication for weeks - long time. -blood glucose check before meals and at bedtime -Resume oral medications with glimepiride and metformin -Insulin Novolog low dose sliding scale coverage -consistent carb diet A Fib, reports has irregular heart beat but has not taken blood thinner medication for a long time. has a white pill (Metoprolol) but does not take every day. -telemetry -continue Metoprolol 25mg po bid High risk social situation -referral to [facility] MAINTENANCE ISSUES -DVT prophylaxis; Lovenox 40 mg subcut daily -GI prophylaxis; PPI therapy -Lloyd catheter; not indicated -Nutrition; consistent carb diet -Nicotine dependence; not required CODE STATUS-FULL CODE ADMISSION STATUS-patient will be admitted to inpatient status, expect at least a 2 night hospital stay for evaluation and management of problems as outlined above. At the time of this admission I do not reasonably expected evaluation and management of this problem will require more than a 96 hour hospital stay. DISPOSITION-anticipate discharge to home after the hospital stay. PRIMARY CARE PROVIDER- Dr. Scott, [facility] HOSPITALIST - Dr. Antunez - Mortality Measure Prognosis:: Good
[2019-04-09] MEDS: metFORMIN 500 MG Tab PO SCH ×2 (13:44→17:15)
[2019-04-09] MEDS: cefTRIAXone 1 GM in Sodium Chloride 0.9% 50 ML IV SCH (18:03)
[2019-04-09] MEDS ORDERED: Enoxaparin 40 MG/0.4 ML Syringe SUBCUT SCH (21:00)
[2019-04-09] MEDS: Tamsulosin 0.4 MG Cap.ER PO SCH (21:07)
[2019-04-09] MEDS: Melatonin 3 MG Tab PO SCH (21:07)
[2019-04-10] MEDS: Insulin Lispro 100 Unit/ML 3 ML KwikPen SUBCUT SCH ×2 (08:00→12:54)
[2019-04-10] MEDS: metFORMIN 500 MG Tab PO SCH (10:20)
[2019-04-10] MEDS: Pantoprazole 40 MG Tab.CR PO SCH (10:20)
[2019-04-10] MEDS: Glimepiride 2 MG Tab PO SCH (10:26)
[2019-04-10] MEDS: Lisinopril 10 MG Tab PO SCH (10:28)
[2019-04-10] MEDS: Metoprolol Tartrate 25 MG Tab PO SCH (10:29)
--- NOTE | 2019-04-10 11:33 | PCM.DCSUM1 ---
Discharge Summary - Hospital Course Brief History: Mr. Armendariz is a 73-year-old gentleman who was admitted through the emergency department with confusion and urinary tract infection, uncontrolled diabetes mellitus. - Discharge Data Discharge Date: 04/10/19 Discharge Disposition: Home, Self-Care 01 Condition: Fair - Referral to Home Health Primary Care Physician: PCP None - Discharge Diagnosis/Problem(s) (1) Dementia SNOMED Code(s): 88572073 ICD Code: F03.90 - UNSPECIFIED DEMENTIA WITHOUT BEHAVIORAL DISTURBANCE Status: Acute Current Visit: Yes (2) Diabetes type 2, uncontrolled SNOMED Code(s): 715499109, 700006397 ICD Code: E11.65 - TYPE 2 DIABETES MELLITUS WITH HYPERGLYCEMIA Status: Acute Priority: High Current Visit: Yes Qualifiers: Glycemic state: with hyperglycemia Qualified Code(s): E11.65 - Type 2 diabetes mellitus with hyperglycemia (3) A-fib SNOMED Code(s): 70208037 ICD Code: I48.91 - UNSPECIFIED ATRIAL FIBRILLATION Status: Acute Priority : Low Current Visit: Yes Qualifiers: Atrial fibrillation type: unspecified Qualified Code(s): I48.91 - Unspecified atrial fibrillation (4) Urinary tract infection SNOMED Code(s): 03802518 ICD Code: N39.0 - URINARY TRACT INFECTION, SITE NOT SPECIFIED Status: Acute Priority: High Current Visit: Yes Qualifiers: Urinary tract infection type: acute cystitis Hematuria presence: with hematuria Qualified Code(s): N30.01 - Acute cystitis with hematuria - Patient Summary/Data Consults: Consultations 04/08/19 19:46 Consult to Case Management/Inorganic Chemist [CONS] Routine Comment: Physician Instructions: Service(s) to be Consulted: Case Manage/Behav Health 04/09/19 10:38 Consult to Physical Therapy [PT Evaluation and Treatment] [CONS] Routine Please Evaluate and Treat. PT Reason for Consult: weakness Pending Discharge: Yes This query below is only for informational purposes and is not editable. Admission Diagnosis/Problem: Urinary tract infection 04/09/19 13:13 OT Evaluation and Treatment [CONS] Routine Please Evaluate and Treat. OT Reason for Consult: Assess cognitive status This query below is only for informational purposes and is not editable. Admission Diagnosis/Problem: Urinary tract infection Hospital Course: Mr. Armendariz is a 73-year-old gentleman who was admitted through the emergency department with confusion secondary to underlying urinary tract infection and uncontrolled diabetes mellitus. He was pulled over by law enforcement because of erratic driving and was noted to be very confused. His car was impounded and he was brought into the emergency department for further evaluation. He was noted to be pleasantly confused on initial evaluation. Laboratory studies diagnostic test showed evidence of hyperglycemia and urinary tract infection. Urine culture was obtained and on admission he was started on IV fluids as well as IV antibiotic therapy with ceftriaxone. He was placed back on his usual medications which resulted in much better control of his diabetes. Metformin was listed as a medication but the patient reported that he had stopped taking this sometime ago. Urine culture was growing gram-positive cocci at the time of discharge, final ID and sensitivities pending. He will be transitioned to oral antibiotic therapy with cephalexin 500 mg every 8 hours for an additional 3 days. He was noted to be confused during hospital stay, there was not felt to be enough confusion and cognitive impairment to hold the patient against his will. [place] [facility] [place] he will car pick up driver new medications through his pharmacy and will also be placed on the additional 3 days of cephalexin. Activity will be as tolerated and he will remain on a diabetic diet. Follow-up appointment will be scheduled with his primary care provider within 1 week. - Patient Instructions Diet: Diabetic Diet Activity: As Tolerated Other/Special Instructions: Please schedule follow-up appointment with primary care provider within 1 week[place] [facility] [place]. - Discharge Plan *PRESCRIPTION DRUG MONITORING PROGRAM REVIEWED*: No *COPY OF PRESCRIPTION DRUG MONITORING REPORT IN PATIENT ANGIE: No Prescriptions/Med Rec: Cephalexin [Keflex] 500 mg PO Q8H #9 capsule Home Medications: Home Meds Glimepiride 4 mg PO WITHBREAKFAST 04/08/19 [History] Lisinopril [Zestril] 10 mg PO DAILY 04/08/19 [History] Tamsulosin [Flomax] 0.4 mg PO BEDTIME 04/08/19 [History] Cephalexin [Keflex] 500 mg PO Q8H #9 capsule 04/10/19 [Rx] - Discharge Summary/Plan Comment DC Time >30 min.: No - Patient Data Vitals - Most Recent: Last Vital Signs Temp 99.2 F 01/11/20 08:03 Pulse 72 04/10/19 10:29 Resp 16 04/10/19 08:03 BP 116/54 L 04/10/19 10:32 Pulse Ox 96 04/10/19 08:03 Weight - Most Recent: 220 lb I&O - Last 24 hours: Intake & Output 04/09/19 04/10/19 04/10/19 22:59 06:59 14:59 Intake Total 1215 120 Output Total 500 50 Balance 715 -50 120 Lab Results - Last 24 hrs: Laboratory Results - last 24 hr 04/10/19 Range/Units 05:45 Sodium 138 L (140-148) mmol/L Potassium 4.0 (3.6-5.2) mmol/L Chloride 106 (100-108) mmol/L Carbon Dioxide 23 (21-32) mmol/L Anion Gap 13.0 (5.0-14.0) mmol/L BUN 33 H (7-18) mg/dL Creatinine 1.9 H (0.8-1.3) mg/dL Est Cr Clr Drug Dosing 32.86 mL/min Estimated GFR (MDRD) 35 L (>60) Glucose 66 L (74-106) mg/dL Calcium 8.0 L (8.5-10.1) mg/dL BESS Results - Last 24 hrs: Microbiology 04/08/19 18:17 Urine Culture - Preliminary Urine, Clean Catch Med Orders - Current: Current Medications Acetaminophen (Tylenol) 650 mg PO Q4H PRN PRN Reason: Pain (Mild 1-3)/fever Last Admin: 04/09/19 21:15 Dose: 650 mg Albuterol (Proventil Neb Soln) 2.5 mg NEB Q4H PRN PRN Reason: Shortness Of Breath/wheezing Docusate Sodium (Colace) 100 mg PO BID PRN PRN Reason: Constipation Last Admin: 04/08/19 21:36 Dose: 100 mg Enoxaparin Sodium (Lovenox) 40 mg SUBCUT BEDTIME [facility] Last Admin: 04/09/19 21:07 Dose: 40 mg Glimepiride (Amaryl) 4 mg PO WITHBREAKFAST MIKAELA Last Admin: 04/10/19 10:26 Dose: 4 mg Ceftriaxone Sodium 1 gm/ (Sodium Chloride) 50 mls @ 100 mls/hr IV Q24H [facility]KAELA Last Admin: 04/09/19 18:03 Dose: 100 mls/hr Insulin Human Lispro (Humalog) 0 unit SUBCUT QIDACANDBED [facility]; Protocol Last Admin: 04/10/19 08:00 Dose: Not Given Lisinopril (Prinivil) 10 mg PO DAILY [facility] Last Admin: 04/10/19 10:28 Dose: 10 mg Melatonin (Melatonin) 9 mg PO BEDTIME [facility] Last Admin: 04/09/19 21:07 Dose: 9 mg Metformin HCl (Glucophage) 1,000 mg PO BIDMEALS [facility] Last Admin: 04/10/19 10:20 Dose: Not Given Metoprolol Tartrate (Lopressor) 25 mg PO BID [facility] Last Admin: 04/10/19 10:29 Dose: 25 mg Morphine Sulfate (Morphine) 2 mg IVPUSH Q2H PRN PRN Reason: Pain (severe 7-10) Ondansetron HCl (Zofran Odt) 4 mg PO Q6H PRN PRN Reason: Nausea able to take PO Ondansetron HCl (Zofran) 4 mg IV Q4H PRN PRN Reason: Nausea/Vomiting Oxycodone HCl (Oxycodone) 5 mg PO Q4H PRN PRN Reason: Pain (moderate 4-6) Pantoprazole Sodium (Protonix) 40 mg PO ACBREAKFAST [facility] Last Admin: 04/10/19 10:20 Dose: Not Given Tamsulosin HCl (Flomax) 0.4 mg PO BEDTIME [facility] Last Admin: 04/09/19 21:07 Dose: 0.4 mg Discontinued Medications Enoxaparin Sodium (Lovenox) 40 mg SUBCUT DAILY [facility] Last Admin: 04/08/19 20:19 Dose: 40 mg Haloperidol (Haldol) 1 mg PO ONETIME STA Stop: 04/09/19 09:56 Last Admin: 04/09/19 10:57 Dose: Not Given Sodium Chloride (Normal Saline) 1,000 mls @ 125 mls/hr IV ASDIRECTED [facility] Last Admin: 04/09/19 10:21 Dose: 125 mls/hr Insulin Human Regular (Humulin R) 20 unit SUBCUT ONETIME ONE Stop: 04/08/19 17:17 Last Admin: 04/08/19 17:28 Dose: 20 units Lorazepam (Ativan) 1 mg IV Q6H PRN PRN Reason: Nausea/Vomiting Metoprolol Tartrate (Lopressor) 25 mg PO ONETIME ONE Stop: 04/09/19 00:41 Last Admin: 04/09/19 01:02 Dose: 25 mg Pantoprazole Sodium (Protonix Iv) 40 mg IVPUSH DAILY [facility] Last Admin: 04/08/19 19:33 Dose: 40 mg - Exam General: Reports: Alert, Oriented, Cooperative, No Acute Distress Lungs: Reports: Clear to Auscultation, Normal Respiratory Effort Cardiovascular: Reports: Regular Rate, Irregular Rhythm, Murmurs GI/Abdominal Exam: Soft, Non-Tender, No Organomegaly, No Distention Extremities: Non-Tender, No Pedal Edema
== END 2019-04-10 13:30 | disposition home or self-care (01) | DRG 638 ==
LOC: JP.ED 17:10 → JP.MS 18:50
PROVIDERS: ADMIT Hospitalist; ATTEND Hospitalist
DX: R73.9 Hyperglycemia, unspecified (principal); R41.0 Disorientation, unspecified; E11.65 Type 2 diabetes mellitus with hyperglycemia; N30.01 Acute cystitis with hematuria; I10 Essential (primary) hypertension; N40.0 Benign prostatic hyperplasia without lower urinary tract symptoms; F03.90 Unspecified dementia, unspecified severity, without behavioral disturbance, psychotic disturbance, mood disturbance, and anxiety; H54.7 Unspecified visual loss; I48.91 Unspecified atrial fibrillation; R00.1 Bradycardia, unspecified; Z88.8 Allergy status to other drugs, medicaments and biological substances; Z79.84 Long term (current) use of oral hypoglycemic drugs; Z87.891 Personal history of nicotine dependence; Z79.899 Other long term (current) drug therapy
CPT/HCPCS: 36415; 80048; 80076; 81001; 82150; 83690; 83735; 84443; 84484; 85027; 87086; 87088; 87186; J1815; 70450; 82962; 83036; 85025; 85610; 94762; 97162-GP; 97165-GO; 97530-GP; 99284; 99285-25; A9270-GY; C9113; J0696; J1650; J7030; J7050